=== PATIENT | female | born 1980 | race Caucasian/White ===

== ENCOUNTER 2022-02-18 14:24 | Outpatient (CLI) | payer MEDICAID, SELFPAY ==
[2022-02-18 21:22] LABS: Chlamydia DNA Amplified* Not Detected (No Detected); GC DNA Amplified* Not Detected (No Detected)
== END 2022-02-18 14:25 | disposition home or self-care (01) ==
PROVIDERS: PCP Family Medicine; Visit Provider Advanced Practice Midwife
DX: M54.50 Low back pain, unspecified (principal); Z71.1 Person with feared health complaint in whom no diagnosis is made; N76.0 Acute vaginitis
CPT/HCPCS: 87086; 87186; 87491; 87591

== ENCOUNTER 2022-09-22 14:52 | Emergency (ER) | payer MEDICAID, SELFPAY ==
[2022-09-22 15:01] VITALS: BP 128/79; PULSE 86; RESP 18; TEMP 36.5; O2SAT 99; BMI 29.1
== END 2022-09-22 15:34 | disposition left against medical advice (07) ==
LOC: ED 15:30
PROVIDERS: PCP Family Medicine
DX: Z53.21 Procedure and treatment not carried out due to patient leaving prior to being seen by health care provider (principal)

== ENCOUNTER 2022-09-29 15:58 | Outpatient (CLI) | payer MEDICAID, SELFPAY ==
[2022-09-29 23:25] LABS: SARS PCR* Negative SARS-CoV-2 (Negative)
== END 2022-09-29 15:59 | disposition home or self-care (01) ==
LOC: FBOREF 15:59
PROVIDERS: PCP Family Medicine; Visit Provider Family Medicine
DX: Z20.822 Contact with and (suspected) exposure to COVID-19 (principal)
CPT/HCPCS: 87635

== ENCOUNTER 2022-11-05 11:12 | Outpatient (CLI) | payer MEDICAID, SELFPAY ==
--- NOTE | 2022-11-05 11:30 | CRLHL7_ITS ---
For Patients: As a result of the Cures Act, medical imaging exams and procedure reports are released immediately into your electronic medical record. You may view this report before your referring provider. If you have questions, please contact your health care provider. BILATERAL SCREENING MAMMOGRAM WITH COMPUTER-AIDED DETECTION AND TOMOSYNTHESIS TECHNIQUE: CC and MLO views were obtained. These mammographic images have been obtained using full-field digital technique. These mammographic images were interpreted with the benefit of computer-aided detection. Breast Tomosynthesis was used in this interpretation. COMPARISON FILM: 11/21/2020. FINDINGS: There are scattered areas of fibroglandular density IMPRESSION: There is no radiographic evidence for malignancy. ASSESSMENT: BI-RADS Category 1: Negative RECOMMENDATION: Routine screening mammogram in 1 year. A lay language report of this examination will be provided to the patient. Calin Harrington M.D. Diagnostic Radiologist [email or web address] Transcribed: 12:50 p.m. PT/Dictated by: Calin Harrington MD @ 11/05/2022 12:14:00 PM (Electronically Signed)
== END 2022-11-05 11:13 | disposition home or self-care (01) ==
LOC: MAMMO 11:13
PROVIDERS: PCP Family Medicine; Visit Provider Family Medicine
DX: Z12.31 Encounter for screening mammogram for malignant neoplasm of breast (principal)
CPT/HCPCS: 77063; 77067

== ENCOUNTER 2022-11-19 15:59 | Outpatient (CLI) | payer MEDICAID, SELFPAY ==
[2022-11-19 16:24] LABS: Yeast No Yeast Seen (None Seen)
[2022-11-19 16:25] LABS: Clue Cells No Clue Cells Seen (None Seen); Trichomonas No Trichomonas Seen (None Seen)
[2022-11-19 19:24] LABS: Chlamydia DNA Amplified* NOT DETECTED (No Detected); GC DNA Amplified* NOT DETECTED (No Detected)
== END 2022-11-19 16:00 | disposition home or self-care (01) ==
PROVIDERS: PCP Family Medicine; Visit Provider Registered Nurse
DX: Z01.419 Encounter for gynecological examination (general) (routine) without abnormal findings (principal); N89.8 Other specified noninflammatory disorders of vagina; Z11.3 Encounter for screening for infections with a predominantly sexual mode of transmission; Z12.4 Encounter for screening for malignant neoplasm of cervix
CPT/HCPCS: 84443; 86592; 86703; 86803; 87086; 87186; 87210; 87340; 87491; 87591

== ENCOUNTER 2022-11-24 08:56 | Outpatient (CLI) | payer MEDICAID, SELFPAY | END 2022-11-24 08:57 | disposition home or self-care (01) | LOC: NFLDREF 11-25 02:40 | PROVIDERS: PCP Family Medicine; Referring Provider Family Medicine; Visit Provider Registered Nurse | DX: Z13.6 Encounter for screening for cardiovascular disorders (principal); Z13.1 Encounter for screening for diabetes mellitus | CPT/HCPCS: 80061; 82947 ==

== ENCOUNTER 2023-04-06 11:02 | Outpatient (CLI) | payer MEDICAID, SELFPAY | END 2023-04-06 11:03 | disposition home or self-care (01) | PROVIDERS: PCP Family Medicine; Visit Provider Registered Nurse | DX: M54.50 Low back pain, unspecified (principal) | CPT/HCPCS: 87086; 87186 ==

== ENCOUNTER 2023-07-15 13:05 | Outpatient (CLI) | payer MEDICAID, SELFPAY | END 2023-07-15 13:06 | disposition home or self-care (01) | LOC: NFLDREF 07-16 11:50 | PROVIDERS: PCP Family Medicine; Visit Provider Internal Medicine | DX: R35.0 Frequency of micturition (principal); K21.9 Gastro-esophageal reflux disease without esophagitis; N39.0 Urinary tract infection, site not specified | CPT/HCPCS: 87086; 87186 ==

== ENCOUNTER 2023-07-23 06:29 | Outpatient (CLI) | payer MEDICAID, SELFPAY ==
[2023-07-23 07:04] LABS: Ur HCG Qualitative* Negative (Negative)
--- NOTE | 2023-07-23 07:43 | W.ANESCHARGE ---
Anesthesia Charges Start Date/Time Anesthesia Start Date: 07/23/23 Anesthesia Start Time: 07:21 Stop Date/Time Anesthesia Stop Date: 07/23/23 Anesthesia Stop Time: 07:36
--- NOTE | 2023-07-23 11:41 | W.ANESCHARGE ---
Anesthesia Charges Start Date/Time Anesthesia Start Date: 07/23/23 Anesthesia Start Time: 07:21 Stop Date/Time Anesthesia Stop Date: 07/23/23 Anesthesia Stop Time: 07:36
== END 2023-07-23 06:30 | disposition home or self-care (01) ==
LOC: OP CLINIC 06:30
PROVIDERS: PCP Family Medicine; Visit Provider Surgery
DX: R13.10 Dysphagia, unspecified (principal); R63.4 Abnormal weight loss
CPT/HCPCS: 00731; 43239; 81025; 88305; 88312; J2704

== ENCOUNTER 2024-01-08 08:39 | Outpatient (CLI) | payer MEDICAID, SELFPAY ==
[2024-01-08 14:45] LABS: Chlamydia DNA Amplified* NOT DETECTED (No Detected); GC DNA Amplified* NOT DETECTED (No Detected)
== END 2024-01-08 08:40 | disposition home or self-care (01) ==
PROVIDERS: PCP Family Medicine; Visit Provider Physician Assistant
DX: Z11.3 Encounter for screening for infections with a predominantly sexual mode of transmission (principal)
CPT/HCPCS: 86592; 86703; 86803; 87086; 87340; 87491; 87591

== ENCOUNTER 2024-05-11 12:46 | Outpatient (CLI) | payer MEDICAID, SELFPAY ==
--- OUTSIDE RECORDS SUMMARY | 2024-05-11 12:49 | XMS_ITS | Clinical Summary ---
Author Organization [employer] [facility] [employer] [facility] Address [place], [place] [address] Care Team Providers Care Cipher Expert Name Role Phone Calin Stallings MD Primary Care Provider + Amy Jacob [employer]IT ADVISOR Unavailable Allergies No known active allergies Medications Medication Sig Dispensed Refills Start Date End Date Status zolpidem (AMBIEN) 10 mg tabletIndications:Pr imary insomnia Take 1 tablet by mouth at bedtime if needed for Sleep. 30 tablet 3 05/22/2017 Active cyclobenzaprine (FLEXERIL) 10 mg tabletIndications:Mi dline thoracic back pain TAKE 1 TABLET BY MOUTH THREE TIMES DAILY NEEDED 30 tablet 1 06/01/2017 Active SUMAtriptan (IMITREX) 50 mg tabletIndications:Ot her migraine without status migrainosus, not intractable Take 1 tablet by mouth 2 times daily if needed for Migraine. Give at minimum 2hrs apart. Max Dose: 200mg per 24hrs. 4 tablet 11/14/2018 Active LORazepam (ATIVAN) 0.5 mg tabIndications:Emoti onal stress,Insomnia, unspecified type Take 1 tablet by mouth at bedtime if needed for Anxiety or Sleep. 4 tablet 11/25/2018 Active omeprazole (PRILOSEC) 40 mg Delayed-Release capsule TK 1 C PO D 09/23/2019 Active tamsulosin (FLOMAX) 0.4 mg capsuleIndications:G ross hematuria,Right renal stone Take 1 capsule by mouth once daily after a meal. 30 capsule 10/09/2019 Active ketorolac (TORADOL) 10 mg tabletIndications:Dy suria,Gross hematuria,UTI symptoms Take 1 tablet by mouth every 6 hours if needed for Pain. Maximum of 40 mg in 24 hours. 20 tablet 10/09/2019 Active ROSA ISELA 3-0.03 mg tabletIndications:En counter for surveillance of contraceptive pills TAKE 1 TABLET BY MOUTH EVERY DAY 28 tablet 01/09/2020 Active Phentermine HCl 37.5 mg capsule Take 37.5 mg by mouth once daily before a meal. Active eletriptan (RELPAX) 40 mg tabletIndications:Ot her migraine with status migrainosus, not intractable Take 1 tablet by mouth 2 times daily if needed for Migraine. Max dose: 80mg in 24 hrs 6 tablet 1 07/23/2020 Active propranolol ER (INDERAL LA) 60 mg Cs24 Sustained-Release capsule Take 60 mg by mouth once daily. 08/08/2020 Active phentermine (ADIPEX-P) 37.5 mg tablet Take 37.5 mg by mouth. 07/11/2020 Active clindamycin (CLEOCIN) 2 % vaginal cream 1 APPLICATION AT BEDTIME X 7 DAYS 01/31/2021 Active trimethoprim-sulfame thoxazole, 160-800 mg, (BACTRIM DS, SEPTRA DS) tab Take 1 Tablet by mouth 2 times daily. 02/01/2021 Active escitalopram oxalate (LEXAPRO) 20 mg tablet Take 20 mg by mouth once daily. 01/14/2021 Active triamcinolone (ARISTOCORT; KENALOG) 0.1 % creamIndications:Petey h Apply topically to affected area(s) 3 times daily. 80 g 02/06/2021 Active miconazole nitrate 2% cream (MONISTAT-DERM, MICATIN) 2 % creamIndications:Maite terial vaginosis Apply topically to affected area(s) 2 times daily. 14 g 04/08/2021 Active benzonatate (TESSALON) 200 mg capsuleIndications:C ough, unspecified type Take 1 Capsule (200 mg) by mouth 3 times daily if needed for Cough. 12 Capsule 06/15/2022 Active metroNIDAZOLE (FLAGYL) 500 mg tablet TAKE 1 TABLET BY MOUTH TWICE DAILY FOR 7 DAYS 02/19/2022 Active DULoxetine (CYMBALTA) 60 mg Delayed-release capsule Take 60 mg by mouth once daily. 02/24/2022 Active DULoxetine (CYMBALTA) 30 mg Delayed-release capsule Take 30 mg by mouth once daily. 02/24/2022 Active buPROPion (WELLBUTRIN XL) 300 mg Extended-Release tablet Take 300 mg by mouth once daily. 11/09/2021 Active albuterol HFA (Ventolin HFA) 90 mcg/actuation inhalerIndications:S hortness of breath Inhale 1-2 Puffs by mouth 4 times daily if needed for Shortness Of Breath. 1 Each 10/12/2022 Active oxyCODONE (ROXICODONE) 5 mg capsuleIndications:O steochondral lesion of talar dome Take 1 Capsule (5 mg) by mouth every 6 hours if needed for Pain. 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 10/27/2017 Overview (11/01/2018): 10/2017- HSIL on Pap 10/2017- colposcopy- NASIR 2-3 11/2017- LEEP- NASIR 2-3 10/2018- NIL/HPV negative Plan: Pap/HPV next due 10/2019 Insomnia 04/05/2013 MRSA (methicillin resistant staph aureus) cultur e positive 03/03/2012 Overview (02/15/2014): leg wound Anxiety 09/05/2011 Resolved Problems Problem Noted Date Diagnosed Date Resolved Date Headache(784.0) 04/04/2010 Headache(784.0) 08/24/2016 Cholelithiasis 08/24/2016 Encounters Date Type Department Care Team Description 04/07/2024 1:45 PM CDT Telemedicine [facility] [address] [place] [address] Amy Jacob, FRANCES Individual Therapy 03/16/2024 1:00 PM CDT - 03/16/2024 11:59 PM CDT Hospital Encounter [facility] [address] [place] [address] Suman Hernandez PA Weight loss, abnormal 03/16/2024 Travel 03/10/2024 8:30 AM CDT Telemedicine [facility] [address] [place] [address] Amy Jacob, [facility] Individual Therapy 03/02/2024 8:30 AM CDT Telemedicine [facility] [address] [place] [address] Amy Jacob, [facility] Individual Therapy 03/02/2024 Travel from Last 3 Months Immunizations Name Administration Dates Next Due AMB Influenza, IIV3 (Age >=3 years)(Flu Clinic Only) 06/30/2008 DTP 11/18/1985, 1,02/12/1981, 981,1980 Influenza, IIV3 (Age >=3 years) 06/14/2013 Influenza, IIV4 04/26/2019, 9,06/02/2016, 014 MMR 09/24/1989,12/11/1981 Oral Polio Vaccine 11/18/1985, 2,02/12/1981, 981,1980 Tdap 07/08/2019,11/26/2009 Tuberculin (PPD) 09/13/2015 Family History Medical History Relation Name Comments Cancer-breast Maternal Aunt Heart Disease Maternal Grandfather Diabetes Maternal Grandmother Hypertension Maternal Grandmother Hypertension Mother Other Mother migraines/gallb ladder disease Relation Name Status Comments Maternal Aunt Maternal Grandfather Maternal Grandmother Mother Social History Tobacco Use Types Packs/Day Years Used Date Smoking Tobacco: Never Smokeless Tobacco: Never Tobacco Cessation:Counseling Given: Yes Alcohol Use Standard Drinks/Week Comments Yes 0 (1 standard drink = 0.6 oz pur e alcohol) occassional PHQ-2 Answer Date Recorded PHQ-2 TOTAL SCORE 3 12/29/2023 Social Connections Answer Date Recorded Frequency of Communication with Friends and Fami ly Not on file 07/29/2021 Financial Resource Strain Answer Date R ecorded Difficulty of Paying Living Expenses Not on file 07/29/2021 Difficulty of Paying Living Expenses Not on file 07/29/2021 Sex and Gender Information Value Date Recorded Sex Assigned at Not on file Gender Identity Not on file Sexual Orientation Not on file Obstetrics History Para Term AB IAB SAB Ectopic Multiple Livin g Live Births 3 2 1 1 0 0 0 0 2 2 Date Outcome GA Total Labor Labor/2nd/3rd Weight Sex Type Anes PTL Humera A1 A5 Name Clin 2000 36w 0d 2.55 kg (5 lb 10 oz) M Vag Livin g Rich aguilar McInty re Delivery Location:[facility] Comments:PTL 2003 Term 37w 0d F Vag Livin g 8 9 Suri n McInty re Delivery Location:[facility] Last Filed Vital Signs Vital Sign Reading Time Taken Comments Blood Pressure 114/73 02/08/2024 11:00 PM CDT Pulse 77 02/08/2024 11:30 PM CDT Temperature 36.8 ??C (98.2 ??F) 02/08/2024 10:43 PM C DT Respiratory Rate 14 02/08/2024 10:43 PM CDT Oxygen Saturation 97% 02/08/2024 11:30 PM CDT Inhaled Oxygen Concentration - - Weight 72.1 kg (159 lb) 02/08/2024 10:42 PM CDT Height 165.1 cm (5' 5) 02/08/2024 10:42 PM CDT Body Mass Index 26.46 02/08/2024 10:42 PM CDT Plan of Treatment Health Maintenance Due Date Last Done Comments Hepatitis C screening for age 18-79 1998 Colonoscopy through age 75 10/29/2020 10/30/2015 Pap test for age 21-65 11/20/2023 , 11/19/2022, 11/16/2020, Additional history exists BMI (ht and wt on same day) for age 18+ 02/26/2024 02/25/2023, 09/28/2019, 09/13/2019, Additional history exists COVID-19 vaccine series ( season) 2024 08/14/2021, 07/24/2021 Influenza for age 9-49 04/03/2024 9, 10/19/2018, 06/02/2016, Additional history exists Depression screening for age 12+ 12/28/2024 12/29/2023, 07/09/2023, 05/08/2023, Additional history exists Tetanus booster 07/08/2029 07/08/2019, 04/2 01/2010, 11/26/2009 Tdap Completed 07/08/2019, 11/26/2009 HIV for age 15-65 Completed 09/13/2019, , 06/22/2018, Additional history exists Pneumococcal series for age 6-64 Aged Out No longer eligible based on patient's age to complete this topic Procedures Procedure Name Priority Date/Time Associated Diagnosis Comments CT ABDOMEN PELVIS W Routine 03/16/2024 1 :31 PM CDT Weight loss, abnormal HPV HIGH RISK Routine 11/19/2022 12:00 PM CDT Encounter for screening for malignant neoplasm of cervix ANTI HIV 08/04 Routine 09/13/2019 10:33 AM INDUSTRIAL SAFETY AND HEALTH SPECIALIST Screen for STD (sexually transmitted disease) from Last 3 Months or Most Recently Relevant to Health Maintenance Results * CT ABDOMEN PELVIS W (03/16/2024 1:31 PM CDT) Anatomical Region Laterality Modality Abdomen, Pelvis, AORTA, LIVER, SPLEEN Computed Tomography Suman ALEXANDER CT * HPV HIGH RISK (11/19/2022 12:00 PM CDT) TYPE 16 Negative Negative 11/25/2022 11:02 AM CDT [facility] TYPE 18 Negative Negative 11/25/2022 11:02 AM CDT [facility] OTHER HIGH RISK TYPES Negative Negative 11/25/2022 11:02 AM CDT [facility] Other (Cervical) 11/19/2022 12:00 PM CDT 11/21/2022 2:35 PM CDT Narrative [facility] - 11/25/2022 11:02 AM CDT HPV types 16, 18, 31, 33, 35, 39, 45, 51, 52, 56, 58, 59, 66 and 68 DNA were undetectable or below the pre-set threshold. Methodology: Leander Napoleon 4800 HPV Test Deana Gould NP MICROBIOLOGY [facility] [address] [place] [address], * ANTI HIV 1/2 (09/13/2019 10:33 AM INDUSTRIAL SAFETY AND HEALTH SPECIALIST) HIV-1/HIV-2 ANTIBODY Non-Reacti ve Non-Reacti ve 09/13/2019 6:32 PM INDUSTRIAL SAFETY AND HEALTH SPECIALIST [facility] Comment:HIV-1 p24 and HIV-1/ HIV-2 Ab not detected. Blood BLOOD SPECIMEN / Unknown Venipuncture / Unknown 09/13/2019 10:33 AM INDUSTRIAL SAFETY AND HEALTH SPECIALIST 09/13/2019 10:54 AM INDUSTRIAL SAFETY AND HEALTH SPECIALIST Bhargavi Owusu MD SEND OUTS [facility] [address] [place] [address], from Last 3 Months or Most Recently Relevant to Health Maintenance Additional Health Concerns Infection Onset Date Last Indicated MRSA Clearance Comment:If >12 months since positive culture, precautions can be discontinued if patient has no MRSA risk factors. +MRSA 03/17/2012 leg wound Reviewed and updated on 08/06/2018. France Cruz RN .................... 08/06/2018 10:24 AM exclusions for contact precaution discontinuation (if > 12 months since positive culture): resides in acute/[place] [facility] care, receiving hemodialysis, has chronic open wounds/skin damage, has long-term percutaneous indwelling medical devices Exclusions for nares collection (if <12 months since positive culture) include all of the previous exclusions plus patients on antibiotics 7 days prior to collection 08/06/2018 08/06/2018 Advance Directives * Full Code (Latest Code Status on File) Date Activated Date Inactivated Comments 10/30/2015 10:14 AM 10/31/2015 2:29 AM * Full Code Date Activated Date Inactivated Comments 10/30/2015 8:13 AM 10/30/2015 10:14 AM Care Teams Cipher Expert Relationship Specialty Start Date End Date Calin Stallings MD [address] [place] [address] PCP - General Family Practice 03/24/20 Amy Jacob LICSW [address] [place] [id number] Therapist Drug Safety Scientist 04/27/23
--- NOTE | 2024-05-11 13:00 | CRLHL7_ITS ---
For Patients: As a result of the Century Cures Act, medical imaging exams and procedure reports are released immediately into your electronic medical record. You may view this report before your referring provider. If you have questions, please contact your health care provider. BILATERAL SCREENING MAMMOGRAM WITH COMPUTER-AIDED DETECTION AND TOMOSYNTHESIS TECHNIQUE: CC and MLO views were obtained. These mammographic images have been obtained using full-field digital technique. These mammographic images were interpreted with the benefit of computer-aided detection. Breast Tomosynthesis was used in this interpretation. COMPARISON FILM: 11/05/22, 11/21/20. FINDINGS: There are scattered areas of fibroglandular density. IMPRESSION: There is no radiographic evidence for malignancy. ASSESSMENT: BI-RADS Category 1: Negative RECOMMENDATION: Routine screening mammogram in 1 year. A lay language report of this examination will be provided to the patient. Calin Harrington M.D. Diagnostic Radiologist [email or web address] SP/Dictated by: Calin Harrington MD @ 05/12/2024 8:26:00 AM (Electronically Signed)
== END 2024-05-11 12:47 | disposition home or self-care (01) ==
PROVIDERS: PCP Family Medicine; Visit Provider Family Medicine
DX: Z12.31 Encounter for screening mammogram for malignant neoplasm of breast (principal)
CPT/HCPCS: 77063; 77067

== ENCOUNTER 2024-08-09 18:02 | Outpatient (CLI) | payer MEDICAID, SELFPAY ==
[2024-08-09 22:31] LABS: Chlamydia DNA Amplified* NOT DETECTED (No Detected); GC DNA Amplified* NOT DETECTED (No Detected)
== END 2024-08-09 18:03 | disposition home or self-care (01) ==
PROVIDERS: PCP Family Medicine; Visit Provider Advanced Practice Midwife
DX: Z11.3 Encounter for screening for infections with a predominantly sexual mode of transmission (principal); Z11.59 Encounter for screening for other viral diseases; Z11.4 Encounter for screening for human immunodeficiency virus [HIV]
CPT/HCPCS: 86592; 86703; 86706; 86803; 87340; 87491; 87591

== ENCOUNTER 2025-02-16 13:18 | Outpatient (CLI) | payer MEDICAID, BC, SELFPAY ==
[2025-02-16 23:32] LABS: Chlamydia DNA Amplified* NOT DETECTED (No Detected); GC DNA Amplified* NOT DETECTED (No Detected)
[2025-02-18 07:31] LABS: HPV Source Cervix
== END 2025-02-16 13:19 | disposition home or self-care (01) ==
PROVIDERS: PCP Family Medicine; Visit Provider Registered Nurse
DX: Z11.3 Encounter for screening for infections with a predominantly sexual mode of transmission (principal); Z12.4 Encounter for screening for malignant neoplasm of cervix; Z11.51 Encounter for screening for human papillomavirus (HPV); Z11.59 Encounter for screening for other viral diseases
CPT/HCPCS: 81513; 86592; 86703; 86803; 87340; 87481; 87491; 87591; 87624; 87625; 87661; 88141; 88142

== ENCOUNTER 2025-02-24 11:27 | Outpatient (CLI) | payer BC, MEDICAID, SELFPAY | END 2025-02-24 11:28 | disposition home or self-care (01) | LOC: NFLDREF 02-27 16:29 | PROVIDERS: PCP Family Medicine; Referring Provider Family Medicine; Visit Provider Registered Nurse | DX: R82.90 Unspecified abnormal findings in urine (principal) | CPT/HCPCS: 87086 ==

== ENCOUNTER 2025-03-08 11:09 | Outpatient (CLI) | payer BC, MEDICAID, SELFPAY | END 2025-03-08 11:10 | disposition home or self-care (01) | LOC: NFLDREF 03-13 14:31 | PROVIDERS: PCP Family Medicine; Referring Provider Family Medicine; Visit Provider Registered Nurse | DX: R39.9 Unspecified symptoms and signs involving the genitourinary system (principal); Z13.6 Encounter for screening for cardiovascular disorders | CPT/HCPCS: 80061; 87086 ==